=== PATIENT | female | born 1995 | race Caucasian/White ===

== ENCOUNTER 2019-02-09 20:49 | Outpatient (CLI) | payer OTHER, MEDICAID ==
[~2019-02-09] VITALS: Ht 160 cm; Wt 94.5 kg
--- NOTE | 2019-02-09 21:15 | NUR ---
Ambulatory to unit for assssment, accompanied by sister. Pt reports "cramping and backache since 5:50pm" Oriented to room, monitor, plan of care. Questions invited and answered.
[2019-02-09 21:32] VITALS: BP 121/83; PULSE 96; TEMP 98.5
[2019-02-09 22:20] VITALS: BP 125/78; PULSE 76
--- NOTE | 2019-02-09 22:20 | NUR ---
2220 SVE WITH NO CERVICAL CHANGE. STILL C/O CONTS CRAMPING WITH SOME INCREASE IN PAIN OCC. PT SEEMS UNHAPPY AND HAS MANY C/O PREVIOUS CARE AT [facility]. STATES IS IN THE MIDDLE OF A DIVORCE FROM HER AND IS WORRIED ABOUT MONEY AND BASICALLY HOMELESS IF HER MOM DIDN'T PROVIDE A HOUSE FOR HER. 2244 DISMISS INSTRUCTIONS GIVEN. HOME WITH SISTER.
== END 2019-02-09 22:45 | disposition home or self-care (01) ==
LOC: LDRO 20:49 → COL.ER 20:49 → LDR 20:49 → EDSTATUS 21:06 → LDRO 22:45 → LDR 22:45
DX: O26.93 Pregnancy related conditions, unspecified, third trimester (principal); Z3A.34 34 weeks gestation of pregnancy
CPT/HCPCS: OP

== ENCOUNTER 2019-03-20 07:14 | Inpatient (IN) | payer OTHER, MEDICAID ==
[2019-03-20] VITALS (54 sets, daily range): BP systolic 103–158; BP diastolic 57–98; PULSE 70–122; TEMP 97.8–100.2
[~2019-03-20] VITALS: Ht 160 cm; Wt 98.2 kg
[2019-03-20 08:14] LABS: BASO % 0.2 % (0.0-2.0); EOS # 0.1 (0.0-0.7); EOS % 0.5 % (0-4.0); GRAN # 6.6 (1.4-6.5); GRAN % 72.2 % (42.2-75.2); HEMATOCRIT 39.4 % (37.0-47.0); HEMOGLOBIN 13.2 g/dl (12.5-16.0); LYMPH # 1.8 (1.2-3.4); LYMPH % 19.4 % (20.0-51.0); MEAN CELL VOLUME 86 fl (80.0-100.0); MEAN CORPUSCULAR HEMOGLOBIN 29 pg (27.0-31.0); MEAN CORPUSCULAR HGB CONC 34 g/dl (33.0-37.0); MEAN PLATELET VOLUME 11.4 fl (7.4-10.4); MONO # 0.7 (0.1-0.6); MONO % 7.4 % (1.7-9.3); PLATELET COUNT 239 K/mm3 (130-400); REDCELL DISTRIBUTION WIDTH-CV 13.6 % (11.5-14.5)
--- NOTE | 2019-03-20 10:15 | NUR ---
RN at bedside. Pt uncontrollably crying. Denies epidural. Discussed pain management options, breathing techniques and position changes. Pt desired to focus on breathing efforts.
--- NOTE | 2019-03-20 13:42 | NUR ---
Pt sitting upright for epidural placement. Difficulty tracing FHR due to maternal position. RN at bedside adjusting monitors. FHR audible.
--- NOTE | 2019-03-20 14:05 | NUR ---
Late deceleration noted. Pt repostioned RL. FHR does not return to baseline. Pt repostioned LL. SS performed. FHR does not return to baseline. Pitocin shut off. O2 applied via simple mask at 10L. Ephedrine given. See emar. FHR returns to baseline. Pt recovering.
--- NOTE | 2019-03-20 22:03 | NUR ---
2054 - SVE complete/0 station. Pt educated on pushing techniques and positioning. Catheter removed 100 mL amparo colored urine. 2104 - Pt positioned into footplates, initial push at this time. 2114 - Pushing well with contractions, recurrent late variable decelerations noted after pushes with spontaneous return to baseline. 2129 - Variable deceleration down to 100 bpm. Pt encouraged not to push with contraction until FHR return to baseline. 2137 - Variable deceleration down to 100 bpm. Pt encouraged not to push with next contraction until FHR return to baseline. 2139 - Small crown with pushes. Dr. Montejo called for delivery. 2147 - Small crown with pushes, pt encouraged not to push until MD at bedside. 2157 - Dr. Montejo at bedside, gowned and gloved at perineum. Pericare provided. 2202 -Spontaneous vaginal delivery of viable baby boy. Infant placed to mothers abdomen. Care of infant assumed to [facility] Nurs[facility] RN. Cord clamped by Dr. Montejo and cut by FOB. Pitocin off. 2205 - Spontaneous delivery of intact placenta. Pitocin restarted at 333 mL/hr per protocol. Fundal massage started by this RN. Fundus firm and at umbilicus. Second degree perineal laceration repaired by Dr. Montejo. 2214 - Epidural off. Pericare provided. New chux beneath patient. Ice pack to perineum. Pt repositioned in bed for comfort. Safety precautions reviewed. Call light within reach. recovery started. See physician delivery note.
[2019-03-21] VITALS (7 sets, daily range): BP systolic 113–133; BP diastolic 54–89; PULSE 72–111; TEMP 97.8–98.5
--- NOTE | 2019-03-21 00:45 | NUR ---
Pt able to lift and hold each leg off of bed for 5 seconds. Pt repositioned to sitting on edge of bed. Epidural catheter removed. Tip smooth, blue, and intact. Bandaid applied to site. Pt able to ambulate to bathroom with stand by assistance. Pt able to void 100 mL. Pericare provided and explained. Mesh panties and peripad applied. New gown on. Pt transferred to room 216 by wheelchair with belongings.
[2019-03-21] MEDS ORDERED: IBU600 MG PO (08:27)
--- NOTE | 2019-03-21 10:28 | NUR ---
Initial visit; Parents thanked Process Description Writer for offering congratulations and God's blessings for the of their son. Process Description Writer thanked family for choosing [place].
[2019-03-22 06:51] VITALS: BP 141/90; PULSE 79
--- NOTE | 2019-03-22 06:53 | NUR ---
PAIN RATED 6/10.
[2019-03-22 15:17] VITALS: BP 135/88; PULSE 71; TEMP 97.9
== END 2019-03-22 19:40 | disposition home or self-care (01) | DRG 807 ==
LOC: OB 07:14 → LDR 07:14 → OB 22:03
PROVIDERS: ADMIT Obstetrics & Gynecology
PROC: 10E0XZZ Delivery of Products of Conception, External Approach (ICD-10-PCS; principal; 2019-03-20)
PROC: 0KQM0ZZ Repair Perineum Muscle, Open Approach (ICD-10-PCS; 2019-03-20)
PROC: 3E033VJ Introduction of Other Hormone into Peripheral Vein, Percutaneous Approach (ICD-10-PCS; 2019-03-20)
PROC: 10907ZC Drainage of Amniotic Fluid, Therapeutic from Products of Conception, Via Natural or Artificial Opening (ICD-10-PCS; 2019-03-20)
PROC: 3E0R3BZ Introduction of Anesthetic Agent into Spinal Canal, Percutaneous Approach (ICD-10-PCS; 2019-03-20)
DX: O99.344 Other mental disorders complicating childbirth (principal); Z37.0 Single live birth; Z3A.40 40 weeks gestation of pregnancy; F41.9 Anxiety disorder, unspecified; F32.9 Major depressive disorder, single episode, unspecified; O70.1 Second degree perineal laceration during delivery; O69.81X0 Labor and delivery complicated by cord around neck, without compression, not applicable or unspecified
CPT/HCPCS: J0595; J2590; J2795; J7120

== ENCOUNTER 2019-09-10 19:54 | Emergency (ER) | payer OTHER, MEDICAID ==
[~2019-09-10] VITALS: Ht 165.1 cm; Wt 92.7 kg
[~2019-09-10 19:54] MED LIST: IBU600 MG PO
[2019-09-10 20:11] VITALS: BP 149/71; TEMP 98.6
[2019-09-10] MEDS ORDERED: BIRTH CONTROL (20:14)
[2019-09-10 21:01] LABS: BASO % 0.3 % (0.0-2.0); EOS # 0.1 (0.0-0.7); EOS % 1.2 % (0-4.0); GRAN # 6.6 (1.4-6.5); HEMATOCRIT 38.8 % (37.0-47.0); HEMOGLOBIN 12.8 g/dl (12.5-16.0); LYMPH # 1.6 (1.2-3.4); LYMPH % 17.4 % (20.0-51.0); MEAN CELL VOLUME 87 fl (80.0-100.0); MEAN CORPUSCULAR HEMOGLOBIN 29 pg (27.0-31.0); MEAN CORPUSCULAR HGB CONC 33 g/dl (33.0-37.0); MEAN PLATELET VOLUME 9.9 fl (7.4-10.4); MONO # 0.8 (0.1-0.6); MONO % 8.9 % (1.7-9.3); PLATELET COUNT 268 K/mm3 (130-400); RED BLOOD COUNT 4.46 M/mm3 (4.10-5.30); REDCELL DISTRIBUTION WIDTH-CV 12.3 % (11.5-14.5)
[2019-09-10 21:15] LABS: ALBUMIN 4.3 gm/dL (3.5-5.0); BILIRUBIN,TOTAL 0.3 mg/dL (0.0-1.0); C-REACTIVE PROTEIN 2.5 mg/dL (0.0-0.9); CALCIUM 9.3 mg/dL (8.4-10.2); CREATININE, serum 0.58 (0.52-1.25); POTASSIUM 3.9 mmol/L (3.4-5.0); TOTAL PROTEIN 7.5 gm/dL (6.4-8.2)
[2019-09-10] MEDS ORDERED: ZOFRAN ODT4 MG PO (22:06)
[2019-09-10 22:24] VITALS: PULSE 78
== END 2019-09-10 22:23 | disposition home or self-care (01) ==
LOC: COL.ER 19:54
PROVIDERS: Physician Assistant
DX: R11.2 Nausea with vomiting, unspecified (principal); R10.84 Generalized abdominal pain
CPT/HCPCS: J2405; Q9967